=== PATIENT | male | born 1965 | race Caucasian/White ===

== ENCOUNTER 2021-05-19 14:35 | Emergency (ER) | payer SELFPAY ==
[2021-05-19 15:03] LABS: BASOPHIL 0.6 % (0-2); EOSINOPHIL 0.7 % (0-5); HCT 45.3 % (42.0-52.0); HGB 15.5 g/dl (13.2-18.0); LYMPHOCYTE 20.2 % (15-48); MCH 33.8 pg (25.0-31.0); MCHC 34.2 g/dL (32.0-36.0); MCV 98.7 fL (78.0-100.0); MPV 8.6 fL (6.0-9.5); NRBC 0; PLT 229 K/uL (150-400); RBC 4.59 M/uL (4.70-6.00)
[2021-05-19 15:21] LABS: ALBUMIN 3.6 g/dL (3.4-5.0); BILIRUBIN - TOTAL 0.3 mg/dL (0.2-1.0); BUN/CREAT RATIO (CALC) 14.8 RATIO; CREATININE 1.28 mg/dL (0.67-1.17); GLOBULIN (CALCULATION) 4.3 g/dL; INR 1.12 (0.9-1.2); POTASSIUM 3.5 mmol/L (3.5-5.1); PROTHROMBIN TIME 13.8 SECONDS (11.8-13.4); PTT 25.3 SECONDS (24.4-34.7); TOTAL PROTEIN 7.9 g/dL (6.4-8.2)
== END 2021-05-19 15:20 | disposition other institution (70) ==
LOC: FER 14:35
PROVIDERS: Emergency Medicine
DX: I21.19 ST elevation (STEMI) myocardial infarction involving other coronary artery of inferior wall (principal); F17.210 Nicotine dependence, cigarettes, uncomplicated
CPT/HCPCS: 36415; 71045; 80053; 84484; 85025; 85610; 85730; 93005; J1644; J2405; J7060